=== PATIENT | male | born 1980 | race Caucasian/White ===

== ENCOUNTER → 2016-10-06 | Outpatient (CLI) | payer BC | LOC: M WUC 09:51 | PROVIDERS: ATTEND Nurse Practitioner Family | DX: E11.69 Type 2 diabetes mellitus with other specified complication (principal); I10 Essential (primary) hypertension; E78.5 Hyperlipidemia, unspecified ==

== ENCOUNTER → 2017-06-15 | Outpatient (CLI) | payer BC ==
[2017-06-15 12:15] LABS: MEAN CORPUSCULAR HEMOGLOBIN 31.1 pg (27.0-33.0); MEAN CORPUSCULAR HGB CONC 34.6 g/dl (32.0-36.5); MEAN CORPUSCULAR VOLUME 89.9 fl (80.0-96.0); PLATELET COUNT, AUTOMATED 312 10^3/uL (150-450); RED CELL DISTRIBUTION WIDTH 11.5 % (11.5-14.5); WHITE BLOOD COUNT 7.3 10^3/uL (4.0-10.0)
[2017-06-15 12:27] LABS: ALBUMIN 4.3 GM/DL (3.2-5.2); ALBUMIN/GLOBULIN RATIO 1.43 (1.00-1.93); ALKALINE PHOSPHATASE 24 U/L (45-117); ALT/SGPT 31 U/L (12-78); ANION GAP 6 MEQ/L (8-16); AST/SGOT 20 U/L (7-37); BILIRUBIN,TOTAL 0.6 MG/DL (0.2-1.0); BLOOD UREA NITROGEN 22 MG/DL (7-18); CALCIUM LEVEL 8.9 MG/DL (8.5-10.1); CARBON DIOXIDE LEVEL 28 MEQ/L (21-32); CHLORIDE LEVEL 106 MEQ/L (98-107); CHOLESTEROL LEVEL 186 MG/DL (<200); CREATININE FOR GFR 1.08 MG/DL (0.70-1.30); GLOMERULAR FILTRATION RATE > 60.0 (>60); GLUCOSE, FASTING 115 MG/DL (70-105); POTASSIUM SERUM 4.3 MEQ/L (3.5-5.1); SODIUM LEVEL 140 MEQ/L (136-145); TOTAL PROTEIN 7.3 GM/DL (6.4-8.2); TRIGLYCERIDES LEVEL 362 MG/DL (<150)
== END ==
LOC: M WUC 08:50
PROVIDERS: ATTEND Nurse Practitioner Family
DX: E11.9 Type 2 diabetes mellitus without complications (principal); E78.2 Mixed hyperlipidemia

== ENCOUNTER → 2017-07-04 | Outpatient (REF) | payer BC | LOC: M LAB REF 09:46 | DX: J02.9 Acute pharyngitis, unspecified (principal) | CPT/HCPCS: 87804 ==

== ENCOUNTER → 2018-02-20 | Outpatient (CLI) | payer BC ==
[2018-02-20 10:44] LABS: BASO # 0.1 10^3/uL (0.0-0.2); BASO % 0.5 % (0.0-1.0); EOS # 0.2 10^3/uL (0.0-0.50); EOS % 2.1 % (0.0-3.0); HEMOGLOBIN 14.5 g/dl (13.5-17.5); IMMATURE GRANULOCYTE % 0.9 % (0-3.0); LYMPH # 2.1 10^3/uL (1.5-4.5); LYMPH % 21.5 % (24.0-44.0); MEAN CORPUSCULAR HEMOGLOBIN 31.7 pg (27.0-33.0); MEAN CORPUSCULAR HGB CONC 34.5 g/dl (32.0-36.5); MEAN CORPUSCULAR VOLUME 91.7 fl (80.0-96.0); MONO % 10.1 % (0.0-5.0); NEUTROPHILS # 6.3 10^3/uL (1.8-7.7); NEUTROPHILS % 64.9 % (36.0-66.0); PLATELET COUNT, AUTOMATED 239 10^3/uL (150-450); RED BLOOD COUNT 4.58 10^6/uL (4.30-6.10); RED CELL DISTRIBUTION WIDTH 11.7 % (11.5-14.5); WHITE BLOOD COUNT 9.7 10^3/uL (4.0-10.0)
[2018-02-20 11:30] LABS: ALBUMIN/GLOBULIN RATIO 1.18 (1.00-1.93); ALKALINE PHOSPHATASE 42 U/L (45-117); ALT/SGPT 39 U/L (12-78); ANION GAP 8 MEQ/L (8-16); AST/SGOT 23 U/L (7-37); BILIRUBIN,TOTAL 0.5 MG/DL (0.2-1.0); BLOOD UREA NITROGEN 15 MG/DL (7-18); CALCIUM LEVEL 9.1 MG/DL (8.5-10.1); CARBON DIOXIDE LEVEL 28 MEQ/L (21-32); CHLORIDE LEVEL 104 MEQ/L (98-107); CREATININE FOR GFR 1.12 MG/DL (0.70-1.30); GLOMERULAR FILTRATION RATE > 60.0 (>60); GLUCOSE, FASTING 219 MG/DL (70-100); POTASSIUM SERUM 4.2 MEQ/L (3.5-5.1); SODIUM LEVEL 140 MEQ/L (136-145); TOTAL PROTEIN 7.4 GM/DL (6.4-8.2)
[2018-02-22 00:07] LABS: Lyme Disease IgG/IgM Antibodie <0.91 ISR (0.00-0.90); Lyme Disease IgM Ab Quantitati <0.80 index (0.00-0.79)
== END ==
LOC: M WUC 09:33
DX: R53.83 Other fatigue (principal)
CPT/HCPCS: 84443

== ENCOUNTER → 2019-07-11 | Outpatient (CLI) | payer BC ==
[2019-07-11 18:09] LABS: HEMATOCRIT 42.4 % (42.0-52.0); MEAN CORPUSCULAR HEMOGLOBIN 31.3 pg (27.0-33.0); MEAN CORPUSCULAR VOLUME 94.6 fl (80.0-96.0); PLATELET COUNT, AUTOMATED 245 10^3/uL (150-450); RED BLOOD COUNT 4.48 10^6/uL (4.30-6.10); WHITE BLOOD COUNT 8.3 10^3/uL (4.0-10.0)
[2019-07-11 18:26] LABS: HEMOGLOBIN A1c 7.1 %
[2019-07-11 18:29] LABS: ALBUMIN 4.2 GM/DL (3.2-5.2); ALT/SGPT 29 U/L (12-78); BILIRUBIN,TOTAL 0.7 MG/DL (0.2-1.0); BLOOD UREA NITROGEN 14 MG/DL (7-18); CALCIUM LEVEL 8.6 MG/DL (8.5-10.1); CARBON DIOXIDE LEVEL 26 MEQ/L (21-32); CHLORIDE LEVEL 103 MEQ/L (98-107); CHOLESTEROL LEVEL 205 MG/DL (<200); CHOLESTEROL RISK RATIO 6.833 (<5); CREATININE FOR GFR 1.08 MG/DL (0.70-1.30); GLOMERULAR FILTRATION RATE > 60.0 (>60); GLUCOSE, FASTING 134 MG/DL (70-100); HDL CHOLESTEROL 30 MG/DL (>40); LDL CHOLESTEROL 99 MG/DL (<100); NON-HDL-C 175 MG/DL; POTASSIUM SERUM 4.1 MEQ/L (3.5-5.1); SODIUM LEVEL 137 MEQ/L (136-145); THYROXINE (T4) 6.3 UG/DL (4.5-12.0); TOTAL PROTEIN 7.1 GM/DL (6.4-8.2); TRIGLYCERIDES LEVEL 378 MG/DL (<150)
[2019-07-11 18:40] LABS: CREATININE, URINE 64.3 MG/DL; MAU/CREAT RATIO 12.4 MCG/MG (0.0-30.0)
== END ==
LOC: M WUC 10:00
PROVIDERS: ATTEND Physician Assistant
DX: E11.9 Type 2 diabetes mellitus without complications (principal); E78.1 Pure hyperglyceridemia; G47.33 Obstructive sleep apnea (adult) (pediatric)

== ENCOUNTER → 2019-12-15 | Outpatient (REF) | payer BC, MEDICAID ==
[2019-12-15 18:22] LABS: BLOOD UREA NITROGEN 17 MG/DL (7-18); CALCIUM LEVEL 8.9 MG/DL (8.5-10.1); CARBON DIOXIDE LEVEL 28 MEQ/L (21-32); CHLORIDE LEVEL 105 MEQ/L (98-107); CREATININE FOR GFR 1.33 MG/DL (0.70-1.30); FREE T4 0.92 NG/DL (0.76-1.46); GLOMERULAR FILTRATION RATE > 60.0 (>60); GLUCOSE, FASTING 124 MG/DL (70-100); SODIUM LEVEL 140 MEQ/L (136-145)
[2019-12-15 18:51] LABS: HEMOGLOBIN A1c 7.3 %
== END ==
LOC: M SFHCADAM 16:30
PROVIDERS: ATTEND Physician Assistant
DX: E11.9 Type 2 diabetes mellitus without complications (principal); E78.1 Pure hyperglyceridemia; G47.33 Obstructive sleep apnea (adult) (pediatric)

== ENCOUNTER → 2020-06-25 | Outpatient (CLI) | payer OTHER, BC, MEDICAID ==
[2020-06-25 15:51] LABS: BLOOD UREA NITROGEN 14 MG/DL (7-18); CALCIUM LEVEL 8.4 MG/DL (8.5-10.1); CARBON DIOXIDE LEVEL 29 MEQ/L (21-32); CHLORIDE LEVEL 104 MEQ/L (98-107); CREATININE FOR GFR 0.98 MG/DL (0.70-1.30); FREE T4 0.94 NG/DL (0.76-1.46); GLOMERULAR FILTRATION RATE > 60.0 (>60); GLUCOSE, FASTING 167 MG/DL (70-100); POTASSIUM SERUM 3.8 MEQ/L (3.5-5.1); SODIUM LEVEL 140 MEQ/L (136-145)
[2020-06-25 15:52] LABS: HEMOGLOBIN A1c 7.3 %
== END ==
LOC: M WUC 11:23
PROVIDERS: ATTEND Physician Assistant
DX: E78.1 Pure hyperglyceridemia (principal); G47.33 Obstructive sleep apnea (adult) (pediatric); E11.9 Type 2 diabetes mellitus without complications

== ENCOUNTER → 2020-07-19 | Outpatient (CLI) | payer SELFPAY | LOC: M LABSMTC 14:15 | PROVIDERS: ATTEND Pediatrics | DX: Z20.822 Contact with and (suspected) exposure to COVID-19 (principal) ==

== ENCOUNTER 2021-07-03 10:49 | Inpatient (IN) | payer OTHER, MEDICAID ==
[2021-07-03] MEDS ORDERED: FENO134C (11:21)
[2021-07-03] MEDS ORDERED: ALOG1TAB2 (11:21)
[2021-07-03 13:00] LABS: BASO % 0.5 % (0.0-1.0); EOS % 0.5 % (0.0-3.0); HEMOGLOBIN 16.2 g/dl (13.5-17.5); LYMPH # 2.6 10^3/uL (1.5-5.0); LYMPH % 20.4 % (24.0-44.0); MEAN CORPUSCULAR HEMOGLOBIN 31.1 pg (27.0-33.0); MEAN CORPUSCULAR HGB CONC 35.2 g/dl (32.0-36.5); MEAN CORPUSCULAR VOLUME 88.3 fl (80.0-96.0); MONO % 7.5 % (2.0-8.0); NEUTROPHILS # 8.9 10^3/uL (1.5-8.5); NEUTROPHILS % 70.2 % (36.0-66.0); PLATELET COUNT, AUTOMATED 305 10^3/uL (150-450); RED BLOOD COUNT 5.21 10^6/uL (4.30-6.10); WHITE BLOOD COUNT 12.7 10^3/uL (4.0-10.0)
--- NOTE | 2021-07-03 13:00 | REP ---
INDICATION: eval for osteo, 5th digit. COMPARISON: None. TECHNIQUE: Four views of the 5th digit of the right foot FINDINGS: There is no acute fracture or destructive osseous lesion. IMPRESSION: No acute osseous abnormality. <Electronically signed by Samm Pizarro > 07/03/21 [id number]
[2021-07-03 13:01] LABS: BASO # 0.1 10^3/uL (0.0-0.2); EOS # 0.1 10^3/uL (0.0-0.5)
[2021-07-03 13:23] LABS: ALBUMIN 4.2 GM/DL (3.2-5.2); ALT/SGPT 37 U/L (12-78); BILIRUBIN,TOTAL 0.8 MG/DL (0.2-1.0); BLOOD UREA NITROGEN 16 MG/DL (7-18); CALCIUM LEVEL 9.8 MG/DL (8.5-10.1); CARBON DIOXIDE LEVEL 25 MEQ/L (21-32); CHLORIDE LEVEL 98 MEQ/L (98-107); CREATININE FOR GFR 1.11 MG/DL (0.70-1.30); GLOMERULAR FILTRATION RATE > 60.0 (>60); GLUCOSE, FASTING 378 MG/DL (70-100); POTASSIUM SERUM 4.1 MEQ/L (3.5-5.1); SODIUM LEVEL 134 MEQ/L (136-145); TOTAL PROTEIN 8.4 GM/DL (6.4-8.2)
[2021-07-03 13:27] LABS: HEMOGLOBIN A1c 9.9 %
[2021-07-03] MEDS ORDERED: cefTRIAXone SOD 1 GM in D5W MINI-BAG PLUS 50 ML IV ONE (13:45)
[2021-07-03 13:50] LABS: ERYTHROCYTE SEDIMENTATION RATE 16 mm/hr (0-15)
[2021-07-03] MEDS ORDERED: GLUCAGON INJ 1MG VIAL SC PRN (14:55)
[2021-07-03] MEDS: NS 1,000 ML IV SCH (14:55)
[2021-07-03] MEDS ORDERED: ACETAMINOPHEN TAB 650MG DOSE (2X325MG) PO PRN (14:55)
[2021-07-03] MEDS ORDERED: MOM 30ML SUSPENSION UDC PO PRN (14:55)
[2021-07-03] MEDS ORDERED: MAALOX 30 ML SUSP *UDC PO PRN (14:55)
[2021-07-03] MEDS ORDERED: DEXTROSE 50% 50 ML SYRINGE IV PRN (14:55)
[2021-07-03] MEDS ORDERED: VANCOMYCIN HCL 1,000 MG, VIAL MATE ADAPTER 1 EACH in NS 250 ML IV SCH (14:55)
[2021-07-03] MEDS ORDERED: GLUCOSE 4GM CHEW TABLET PO PRN (14:55)
--- NOTE | 2021-07-03 15:15 | HPEPDOC ---
[facility] Medical History & Physical Date of Admission Jul 03, 2021 Date of Service: Jul 03, 2021 History and Physical Chief complaint: Who presented to the emergency room with right toe pain History of present illness: Patient is a 41-year-old male with a PMHx of NIDDM2, DLP, who presented to the emergency room with right foot fifth digit toe pain and ulceration. Patient reported that over the last 2 months he had a corn on his foot. , However, on the first, he began to note increased drainage around the inner side of his pinky toe and redness that extended up his foot. Patient had reported some difficulty ambulating because of the pain. Patient denies any fevers or chills while at home. Patient denies any nausea, vomiting, chest pain, palpitations, cough, abdominal pain, constipation, diarrhea, or urinary discomfort. Patient does report some shortness of breath, however, he had attributed this to the pain he experienced. Patient denies any changes in his weight, but does report a poor appetite. Past Medical History: NIDDM2, DLP Past Surgical History: Patient had a mole resected off his chest wall as a child Allergies: See below Medications: See below Family History: - Reviewed and noncontributory Social History: - Patient reports that they are smoker; reports social alcohol use; reports use of marijuana - Denies recent travel or sick contacts - He reports that he has not received the COVID19 vaccine - Occupation; patient is employed Review of Systems: 10 point review of systems complete, all negative otherwise stated in HPI Physical exam: - Vitals: BP [145/95], HR [102], RR [15], Sat [98%RA], Temp [97.4F] - General: Lying in bed, Speaking in full sentences, AAOx3 - HEENT: NC, AT, PERRLA - CVS: Tachycardia, +S1S2 - Lungs: Fair air entry bilaterally, No appreciable wheezing / rales / rhonchi - Abdomen: Soft, Non-distended, Non-tender - Extremities: No lower extremity edema, No calf tenderness - Neuro: No focal motor or sensory deficit - Skin: R foot, 5th digit with medial aspect with serosanguineous drainage; erythema involving R dorsal surface of foot Labs: See below Imaging: See below EKG: See below Assessment and Plan: R foot fifth digit ulceration - likely 2/2 diabetic ulcer, possibly 2/2 osteomyelitis - Presented to the ER with right toe pain since 07/01/21 - Patient has mild tachycardia, but remains hemodynamically stable; no fevers documented - Leukocytosis with neutrophil predominance / Elevated CRP - Imaging noted above - Will check blood cultures / procalcitonin / MRSA screen - Will start IV fluid hydration and broad spectrum coverage (Vancomycin and Zosyn; Day #1) - Called and discussed case with Dr. Deleon, podiatry; will evaluate patient today - Will keep patient NPO status at this time COVID19 - Patient is currently asymptomatic - Patient is saturating well on room air - Will start Mucinex / Acapella / Incentive spirometry Hyponatremia (mild) - c/w IV fluid hydration (in view of active infection) NIDDM2 - Will hold home oral hypoglycemic agents - A1c of 9.9 - Will start ISS - Will get dietary consult DLP - c/w Fenofibrate DVT prophylaxis - Will start Heparin Disposition: - Pending clinical improvement Vital Signs Vital Signs Date Time Temp Pulse Resp B/P (MAP) Pulse Ox O2 Delivery O2 Flow Rate FiO2 07/03/21 10:49 97.4 102 15 145/95 (112) 98 Room Air Laboratory Data Labs 24H Laboratory Tests 2 07/03/21 12:42: Immature Granulocyte % (Auto) 0.9, Neutrophils (%) (Auto) 70.2H, Lymphocytes (%) (Auto) 20.4L, Monocytes (%) (Auto) 7.5, Eosinophils (%) (Auto) 0.5, Basophils (%) (Auto) 0.5, Neutrophils # (Auto) 8.9H, Lymphocytes # (Auto) 2.6, Monocytes # (Auto) 1.0H, Eosinophils # (Auto) 0.1, Basophils # (Auto) 0.1, Nucleated Red Blood Cells % (auto) 0.0, Erythrocyte Sedimentation Rate 16H, Anion Gap 11, Glomerular Filtration Rate > 60.0, Estimated Mean Plasma Glucose 237H, Hemoglobin A1c 9.9, Calcium Level 9.8, Total Bilirubin 0.8, Aspartate Amino Transf (AST/SGOT) 18, Alanine Aminotransferase (ALT/SGPT) 37, Alkaline Phosphatase 72, C-Reactive Protein, Quantitative 12.90H, Total Protein 8.4H, Albumin 4.2, Albumin/Globulin Ratio 1.0 07/03/21 12:43: Coronavirus (COVID-19)(PCR) POSITIVEA CBC/BMP Laboratory Tests 07/03/21 12:42 Microbiology Microbiology 07/03/21 Blood Culture, Received Pending 07/03/21 Blood Culture, Received Pending Home Medications Scheduled Alogliptin Benitez/Metformin HCl (Alogliptin-Metformin 12.5-1000) 1 Each Tablet, BID Fenofibrate,Micronized (Fenofibrate) 134 Mg Capsule, DAILY Allergies Coded Allergies: prochlorperazine (Verified Allergy, Severe, nucal ridgidity, 07/03/21) CASPER BETANCOURT MD Jul 03, 2021 15:15
[2021-07-03 17:00] VITALS: BP 136/87
[2021-07-03] MEDS: PIPERACILLIN/TAZOBACTAM SOD 3.375 GM in D5W MINI-BAG PLUS 50 ML IV SCH (17:13)
[2021-07-03] MEDS: HumaLOG INSULIN (NovoLOG) PER UNIT SC SCH (17:13)
[2021-07-03 20:00] VITALS: BP 131/70
[2021-07-03] MEDS ORDERED: VANCOMYCIN HCL 1,000 MG, VIAL MATE ADAPTER 1 EACH in NS 250 ML IV ONE ×2 (20:00→21:00)
[2021-07-03] MEDS: guaiFENesin ER 600 MG TAB PO SCH (20:40)
[2021-07-03] MEDS: DOCUSATE SODIUM 100MG CAPSULE PO SCH (20:40)
[2021-07-03] MEDS: MUPIROCIN 2% OINT 22 GM TUBE TOP SCH (20:40)
[2021-07-03] MEDS ORDERED: LEVEMIR (INSULIN DETEMIR) 1 UNITS/0.01ML SC SCH (21:00)
[2021-07-03] MEDS ORDERED: HumaLOG INSULIN (NovoLOG) PER UNIT SC SCH (21:00)
[2021-07-03] MEDS: HEPARIN SOD (PORCINE) 5000UNITS/ML 1ML VIAL/SYRINGE SC SCH (22:06)
--- NOTE | 2021-07-03 23:57 | CR ---
CONSULTATION DATE: 07/03/2021 REASON FOR CONSULTATION: Right fifth toe ulceration and infection. HISTORY OF PRESENT ILLNESS: Jules Owen is a 41-year-old male who was admitted through the E.R. due to worsening right fifth toe pain. He states he has had a corn there that he has been using some corn remover on. Over the last few days it has significantly worsened in terms of pain. PAST MEDICAL HISTORY: The patient's past medical history is significant for: 1. Diabetes. 2. Hypercholesterolemia. PAST SURGICAL HISTORY: The patient's past surgical history is significant for mole excision. ALLERGIES: Prochlorperazine. FAMILY HISTORY: Noncontributory. SOCIAL HISTORY: Positive for smoking and tobacco and marijuana use. REVIEW OF SYSTEMS: Negative for nausea, vomiting, fever or chills. PHYSICAL EXAMINATION: VITAL SIGNS: The patient has been afebrile. EXTREMITIES: Lower extremity examination there is erythema and edema from the right fifth toe where there is a necrotic ulceration. LABORATORY STUDIES: White blood cell count is 20.7, ESR 16, CRP is 12.9. Hemoglobin A1c is 9.9. Of note, the patient is COVID positive. IMAGING: X-rays were reviewed which revealed no signs of osteomyelitis. ASSESSMENT: A 41-year-old diabetic male with right fifth toe ulceration and cellulitis. TREATMENT: Bedside wound debridement was performed after administering 3 mL of 1% Lidocaine plain. Using a #15 blade, an excisional subcutaneous debridement was performed. Wound culture swab was taken. The wound dressing orders including Mupirocin Ointment and Optifoam to be applied.
[2021-07-04] MEDS: PIPERACILLIN/TAZOBACTAM SOD 3.375 GM in D5W MINI-BAG PLUS 50 ML IV SCH ×3 (00:12→12:25)
[2021-07-04] MEDS: NS 1,000 ML IV SCH ×2 (00:55→13:58)
[2021-07-04] MEDS ORDERED: VANCOMYCIN HCL 750 MG, VIAL MATE ADAPTER 1 EACH in NS 250 ML IV SCH ×2 (03:00→04:00)
[2021-07-04 04:00] VITALS: BP 112/62
[2021-07-04] MEDS: HEPARIN SOD (PORCINE) 5000UNITS/ML 1ML VIAL/SYRINGE SC SCH ×2 (05:12→14:00)
[2021-07-04 07:03] LABS: BASO # 0.1 10^3/uL (0.0-0.2); BASO % 0.5 % (0.0-1.0); EOS # 0.1 10^3/uL (0.0-0.5); EOS % 1.5 % (0.0-3.0); HEMATOCRIT 38.4 % (42.0-52.0); LYMPH # 3.4 10^3/uL (1.5-5.0); LYMPH % 35.6 % (24.0-44.0); MEAN CORPUSCULAR HEMOGLOBIN 30.9 pg (27.0-33.0); MEAN CORPUSCULAR HGB CONC 34.9 g/dl (32.0-36.5); MEAN CORPUSCULAR VOLUME 88.7 fl (80.0-96.0); MONO # 0.9 10^3/uL (0.0-0.8); MONO % 9.5 % (2.0-8.0); NEUTROPHILS # 4.9 10^3/uL (1.5-8.5); NEUTROPHILS % 51.7 % (36.0-66.0); PLATELET COUNT, AUTOMATED 265 10^3/uL (150-450); RED BLOOD COUNT 4.33 10^6/uL (4.30-6.10); WHITE BLOOD COUNT 9.5 10^3/uL (4.0-10.0)
[2021-07-04 07:16] LABS: HEMOGLOBIN 13.4 g/dl (13.5-17.5)
[2021-07-04 07:42] LABS: BLOOD UREA NITROGEN 20 MG/DL (7-18); C REACTIVE PROTEIN QUANTITATIV 8.64 MG/DL (0.00-0.30); CALCIUM LEVEL 8.5 MG/DL (8.5-10.1); CARBON DIOXIDE LEVEL 24 MEQ/L (21-32); CHLORIDE LEVEL 105 MEQ/L (98-107); CREATININE FOR GFR 0.86 MG/DL (0.70-1.30); GLOMERULAR FILTRATION RATE > 60.0 (>60); GLUCOSE, FASTING 301 MG/DL (70-100); MAGNESIUM LEVEL 1.8 MG/DL (1.8-2.4); POTASSIUM SERUM 3.9 MEQ/L (3.5-5.1); SODIUM LEVEL 137 MEQ/L (136-145)
[2021-07-04] MEDS ORDERED: FENOFIBRATE 145MG TABLET (TRICOR) PO SCH (09:00)
[2021-07-04] MEDS: HumaLOG INSULIN (NovoLOG) PER UNIT SC SCH ×2 (09:34→12:25)
[2021-07-04] MEDS: DOCUSATE SODIUM 100MG CAPSULE PO SCH (09:34)
[2021-07-04] MEDS: guaiFENesin ER 600 MG TAB PO SCH (09:35)
[2021-07-04] MEDS: MUPIROCIN 2% OINT 22 GM TUBE TOP SCH (09:35)
[2021-07-04 13:40] VITALS: BP 129/72
[2021-07-04] MEDS ORDERED: BACT800T5 PO (14:19)
--- NOTE | 2021-07-04 14:27 | DS.PDOC ---
Discharge Summary General Date of Admission Jul 03, 2021 at 14:52 Date of Discharge 07/04/21 Discharge Summary PROCEDURES PERFORMED DURING STAY: right 5th toe debridement DISCHARGE DIAGNOSES: #right foot DFU - s/p debridement #NIDDM2 #DLP COMPLICATIONS/CHIEF COMPLAINT: Cellulitis,Diabetic Foot Ulcer. HPI/HOSPITAL COURSE: Patient is a 41-year-old male with a PMHx of NIDDM2, DLP, who presented to the emergency room with right foot fifth digit toe pain and ulceration. Patient reported that over the last 2 months he had a corn on his foot. , However, on the first, he began to note increased drainage around the inner side of his pinky toe and redness that extended up his foot. Patient had reported some difficulty ambulating because of the pain. Patient denies any fevers or chills while at home. Patient was seen in consultation by podiatry. Patient underwent bedside debridement. Further discussion with podiatry with recommendations for discharge home with oral antibiotics and outpatient follow-up. DISCHARGE MEDICATIONS: Please see below. ALLERGIES: Please see below. PHYSICAL EXAMINATION ON DISCHARGE: Vital Signs: reviewed General: NAD, lying comfortably in bed HEENT: NC/AT, EOMI Neck: supple, no masses Chest: lungs CTA B/L Heart: +S1S2, RRR Abd: soft, NT, ND, +BS Ext: Right foot bandages in place Skin: no rashes MSK: full ROM at large joints Neuro: no gross focal deficits Psych: AAOx3 LABORATORY DATA: Please see below. ACTIVITY: [As tolerated]. DIET: Carb consistent DISPOSITION: Discharge home DISCHARGE INSTRUCTIONS: 1. Follow-up primary care provider in 1 to 3 days 2. Follow-up with podiatry in 3 to 5 days DISCHARGE CONDITION: [Stable]. TIME SPENT ON DISCHARGE: 35 minutes. Vital Signs/I&Os Vital Signs Date Time Temp Pulse Resp B/P (MAP) Pulse Ox O2 Delivery O2 Flow Rate FiO2 07/04/21 13:40 98.0 72 18 129/72 (91) 99 Room Air I&O- Last 24 Hours up to 6 AM 07/04/21 06:00 Intake Total 3050 ml Output Total 2000 ml Balance 1050 ml Laboratory Data Labs 24H Laboratory Tests 2 07/03/21 15:54: Lactic Acid Level 1.4 07/03/21 16:53: Bedside Glucose (Misc Panel) 294H 07/03/21 19:41: Bedside Glucose (Misc Panel) 369H 07/04/21 06:25: Immature Granulocyte % (Auto) 1.2, Neutrophils (%) (Auto) 51.7, Lymphocytes (%) (Auto) 35.6, Monocytes (%) (Auto) 9.5H, Eosinophils (%) (Auto) 1.5, Basophils (%) (Auto) 0.5, Neutrophils # (Auto) 4.9, Lymphocytes # (Auto) 3.4, Monocytes # (Auto) 0.9H, Eosinophils # (Auto) 0.1, Basophils # (Auto) 0.1, Nucleated Red Blood Cells % (auto) 0.0, Anion Gap 8, Glomerular Filtration Rate > 60.0, Calcium Level 8.5, Magnesium Level 1.8, C-Reactive Protein, Quantitative 8.64H 07/04/21 11:10: Bedside Glucose (Misc Panel) 248H CBC/BMP Laboratory Tests 07/04/21 06:25 FSBS Laboratory Tests Test 07/03/21 16:53 07/03/21 19:41 07/04/21 11:10 Range/Units Bedside Glucose (Misc Panel) 294 369 248 70-105 MG/DL Microbiology Microbiology 07/03/21 Gram Stain - Final, Resulted 07/03/21 Wound Culture, Resulted Pending 07/03/21 Blood Culture - Preliminary, Resulted No growth after 24 hours . All specim... 07/03/21 Blood Culture - Preliminary, Resulted No growth after 24 hours . All specim... Discharge Medications Scheduled Alogliptin Benitez/Metformin HCl (Alogliptin-Metformin 12.5-1000) 1 Each Tablet, BID, (Reported) Fenofibrate,Micronized (Fenofibrate) 134 Mg Capsule, DAILY, (Reported) Sulfamethoxazole/Trimethoprim (Bactrim Ds Tablet) 1 Each Tablet, 1 TAB PO BID Allergies Coded Allergies: prochlorperazine (Verified Allergy, Severe, nucal ridgidity, 07/03/21) RADHA LOGAN MD Jul 04, 2021 14:27
== END 2021-07-04 15:30 | disposition home or self-care (01) | DRG 380 ==
LOC: M ED 10:49 → M ED INP 14:52 → ENRESERV 15:40 → M 4MAIN 16:18
PROVIDERS: ADMIT Internal Medicine; ATTEND Internal Medicine
PROC: 0JBQ0ZZ Excision of Right Foot Subcutaneous Tissue and Fascia, Open Approach (ICD-10-PCS; principal; 2021-07-03)
DX: E11.621 Type 2 diabetes mellitus with foot ulcer (principal); U07.1 COVID-19; L97.519 Non-pressure chronic ulcer of other part of right foot with unspecified severity; E87.1 Hypo-osmolality and hyponatremia; E78.5 Hyperlipidemia, unspecified; Z88.8 Allergy status to other drugs, medicaments and biological substances; Z79.899 Other long term (current) drug therapy; Z88.2 Allergy status to sulfonamides; F17.200 Nicotine dependence, unspecified, uncomplicated; F12.90 Cannabis use, unspecified, uncomplicated

== ENCOUNTER → 2021-07-22 | Outpatient (CLI) | payer OTHER, MEDICAID ==
[~2021-07-22] MED LIST: ALOG1TAB2; BACT800T5 PO; FENO134C
[2021-07-22 12:20] LABS: BASO % 0.5 % (0.0-1.0); EOS # 0.1 10^3/uL (0.0-0.5); EOS % 1.7 % (0.0-3.0); HEMATOCRIT 38.3 % (42.0-52.0); LYMPH # 2.5 10^3/uL (1.5-5.0); LYMPH % 38.6 % (24.0-44.0); MEAN CORPUSCULAR HEMOGLOBIN 30.4 pg (27.0-33.0); MEAN CORPUSCULAR HGB CONC 33.9 g/dl (32.0-36.5); MEAN CORPUSCULAR VOLUME 89.7 fl (80.0-96.0); MONO # 0.5 10^3/uL (0.0-0.8); MONO % 8.1 % (2.0-8.0); NEUTROPHILS # 3.3 10^3/uL (1.5-8.5); NEUTROPHILS % 50.3 % (36.0-66.0); PLATELET COUNT, AUTOMATED 241 10^3/uL (150-450); RED BLOOD COUNT 4.27 10^6/uL (4.30-6.10); WHITE BLOOD COUNT 6.6 10^3/uL (4.0-10.0)
[2021-07-22 13:00] LABS: ALBUMIN 3.8 GM/DL (3.2-5.2); ALT/SGPT 35 U/L (12-78); BILIRUBIN,TOTAL 0.5 MG/DL (0.2-1.0); BLOOD UREA NITROGEN 15 MG/DL (7-18); CALCIUM LEVEL 8.6 MG/DL (8.5-10.1); CARBON DIOXIDE LEVEL 27 MEQ/L (21-32); CHLORIDE LEVEL 106 MEQ/L (98-107); CHOLESTEROL LEVEL 151 MG/DL (<200); CHOLESTEROL RISK RATIO 4.441 (<5); CREATININE FOR GFR 0.87 MG/DL (0.70-1.30); FREE T4 0.95 NG/DL (0.76-1.46); GLOMERULAR FILTRATION RATE > 60.0 (>60); GLUCOSE, FASTING 249 MG/DL (70-100); HDL CHOLESTEROL 34 MG/DL (>40); LDL CHOLESTEROL 91 MG/DL (<100); NON-HDL-C 117 MG/DL; POTASSIUM SERUM 4.1 MEQ/L (3.5-5.1); SODIUM LEVEL 138 MEQ/L (136-145); TOTAL PROTEIN 6.7 GM/DL (6.4-8.2); TRIGLYCERIDES LEVEL 128 MG/DL (<150)
[2021-07-24 11:03] LABS: TOTAL 25(OH) VITAMIN D 27.1 NG/ML (30.0-100.0)
[2021-07-24 11:04] LABS: FOLATE 16.5 NG/ML (>5.4); VITAMIN B12 LEVEL 1073 PG/ML (247-911)
== END ==
LOC: M LAB 11:21
PROVIDERS: ATTEND Physician Assistant
DX: E11.9 Type 2 diabetes mellitus without complications (principal); E78.5 Hyperlipidemia, unspecified; E78.1 Pure hyperglyceridemia

== ENCOUNTER → 2021-09-27 | Outpatient (CLI) | payer MEDICAID, OTHER ==
[~2021-09-27] MED LIST changes: -FENO134C; +FENO134C16
[2021-09-27 10:42] LABS: HEMATOCRIT 37.7 % (42.0-52.0); HEMOGLOBIN 12.9 g/dl (13.5-17.5); MEAN CORPUSCULAR HEMOGLOBIN 30.6 pg (27.0-33.0); MEAN CORPUSCULAR HGB CONC 34.2 g/dl (32.0-36.5); MEAN CORPUSCULAR VOLUME 89.5 fl (80.0-96.0); PLATELET COUNT, AUTOMATED 273 10^3/uL (150-450); RED BLOOD COUNT 4.21 10^6/uL (4.30-6.10); WHITE BLOOD COUNT 9.8 10^3/uL (4.0-10.0)
[2021-09-27 11:37] LABS: HEMOGLOBIN A1c 9.6 %
[2021-09-27 11:41] LABS: ALBUMIN 4.3 GM/DL (3.2-5.2); ALT/SGPT 35 U/L (12-78); BILIRUBIN,TOTAL 0.7 MG/DL (0.2-1.0); BLOOD UREA NITROGEN 13 MG/DL (7-18); CALCIUM LEVEL 9.3 MG/DL (8.5-10.1); CARBON DIOXIDE LEVEL 31 MEQ/L (21-32); CHLORIDE LEVEL 103 MEQ/L (98-107); CREATININE FOR GFR 0.82 MG/DL (0.70-1.30); FERRITIN 85 NG/ML (26-388); GLOMERULAR FILTRATION RATE > 60.0 (>60); GLUCOSE, FASTING 148 MG/DL (70-100); IRON (FE) 56 UG/DL (65-175); PERCENT SATURATION 13.9 % (19.7-50.0); SODIUM LEVEL 138 MEQ/L (136-145); TOTAL IRON BINDING CAPACITY 404 UG/DL (250-450); TOTAL PROTEIN 7.1 GM/DL (6.4-8.2)
== END ==
LOC: M LAB 09:09
PROVIDERS: ATTEND Physician Assistant
DX: E11.621 Type 2 diabetes mellitus with foot ulcer (principal); D64.9 Anemia, unspecified

== ENCOUNTER → 2022-01-02 | Outpatient (REF) | payer MEDICAID, OTHER ==
[2022-01-02 13:01] LABS: HEMOGLOBIN 14.7 g/dl (13.5-17.5); MEAN CORPUSCULAR HEMOGLOBIN 30.6 pg (27.0-33.0); MEAN CORPUSCULAR HGB CONC 33.4 g/dl (32.0-36.5); MEAN CORPUSCULAR VOLUME 91.7 fl (80.0-96.0); PLATELET COUNT, AUTOMATED 282 10^3/uL (150-450); WHITE BLOOD COUNT 7.8 10^3/uL (4.0-10.0)
[2022-01-02 13:23] LABS: HEMOGLOBIN A1c 6.5 %
[2022-01-02 13:37] LABS: ALBUMIN 4.3 GM/DL (3.2-5.2); ALT/SGPT 26 U/L (12-78); BILIRUBIN,TOTAL 0.8 MG/DL (0.2-1.0); BLOOD UREA NITROGEN 23 MG/DL (7-18); CALCIUM LEVEL 9.1 MG/DL (8.5-10.1); CARBON DIOXIDE LEVEL 27 MEQ/L (21-32); CHLORIDE LEVEL 107 MEQ/L (98-107); CREATININE FOR GFR 0.84 MG/DL (0.70-1.30); FERRITIN 81 NG/ML (26-388); GLOMERULAR FILTRATION RATE > 60.0 (>60); GLUCOSE, FASTING 127 MG/DL (70-100); IRON (FE) 111 UG/DL (65-175); PERCENT SATURATION 28.3 % (19.7-50.0); POTASSIUM SERUM 4.2 MEQ/L (3.5-5.1); SODIUM LEVEL 138 MEQ/L (136-145); TOTAL IRON BINDING CAPACITY 392 UG/DL (250-450); TOTAL PROTEIN 7.2 GM/DL (6.4-8.2)
== END ==
LOC: M SFHCADAM 09:51
PROVIDERS: ATTEND Physician Assistant
DX: E11.621 Type 2 diabetes mellitus with foot ulcer (principal); D64.9 Anemia, unspecified

== ENCOUNTER → 2022-06-13 | Outpatient (REF) | payer MEDICAID, OTHER ==
[~2022-06-13] MED LIST changes: -FENO134C16; +FENO134C20
[2022-06-13 14:23] LABS: BASO # 0.1 10^3/uL (0.0-0.2); BASO % 0.7 % (0.0-1.0); EOS # 0.2 10^3/uL (0.0-0.5); EOS % 2.4 % (0.0-3.0); HEMATOCRIT 44.5 % (42.0-52.0); HEMOGLOBIN 14.7 g/dl (13.5-17.5); LYMPH # 2.6 10^3/uL (1.5-5.0); LYMPH % 35.5 % (24.0-44.0); MEAN CORPUSCULAR HEMOGLOBIN 30.4 pg (27.0-33.0); MEAN CORPUSCULAR VOLUME 92.1 fl (80.0-96.0); MONO # 0.6 10^3/uL (0.0-0.8); MONO % 7.7 % (2.0-8.0); NEUTROPHILS # 3.9 10^3/uL (1.5-8.5); NEUTROPHILS % 53.2 % (36.0-66.0); PLATELET COUNT, AUTOMATED 245 10^3/uL (150-450); RED BLOOD COUNT 4.83 10^6/uL (4.30-6.10); WHITE BLOOD COUNT 7.4 10^3/uL (4.0-10.0)
[2022-06-13 14:35] LABS: ALBUMIN 3.9 G/DL (3.2-5.2); ALKALINE PHOSPHATASE 44 U/L (46-116); ALT/SGPT 28 U/L (7.0-40); AST/SGOT 25 U/L (<34); BILIRUBIN,TOTAL 0.9 MG/DL (0.3-1.2); BLOOD UREA NITROGEN 19 MG/DL (9-23); CALCIUM LEVEL 9.1 MG/DL (8.5-10.1); CARBON DIOXIDE LEVEL 30 MMOL/L (20-31); CHLORIDE LEVEL 104 MMOL/L (98-107); CHOLESTEROL LEVEL 186 MG/DL (<200); CHOLESTEROL RISK RATIO 3.84 (<5); CREATININE FOR GFR 0.84 MG/DL (0.70-1.30); GLOMERULAR FILTRATION RATE > 60.0 (>60); GLUCOSE, FASTING 128 MG/DL (60-100); HDL CHOLESTEROL 48.4 MG/DL (>40); IRON (FE) 95 UG/DL (65-175); LDL CHOLESTEROL 116.6 MG/DL (<100); NON-HDL-C 138 MG/DL; POTASSIUM SERUM 4.3 MMOL/L (3.5-5.1); SODIUM LEVEL 139 MMOL/L (136-145); TOTAL PROTEIN 7.1 G/DL (5.7-8.2); TRIGLYCERIDES LEVEL 105 MG/DL (<150)
[2022-06-13 14:36] LABS: FREE T4 1.19 NG/DL (0.89-1.76); THYROID STIMULATING HORMONE 2.236 uIU/ML (0.55-4.78)
[2022-06-13 14:37] LABS: FOLATE > 24.0 NG/ML (>5.4); VITAMIN B12 LEVEL 645 PG/ML (211-911)
== END ==
LOC: M SFHCADAM 09:19
PROVIDERS: ATTEND Family Medicine
DX: E78.1 Pure hyperglyceridemia (principal); E11.621 Type 2 diabetes mellitus with foot ulcer; D64.9 Anemia, unspecified

== ENCOUNTER → 2024-06-06 | Outpatient (CLI) | payer OTHER ==
[2024-06-06 12:08] LABS: BASO # 0.1 10^3/uL (0.0-0.2); BASO % 0.6 % (0.0-1.0); EOS # 0.2 10^3/uL (0.0-0.5); EOS % 1.9 % (0.0-3.0); HEMATOCRIT 39.8 % (42.0-52.0); HEMOGLOBIN 13.7 g/dl (13.5-17.5); LYMPH # 2.7 10^3/uL (1.5-5.0); LYMPH % 32.7 % (24.0-44.0); MEAN CORPUSCULAR HEMOGLOBIN 30.5 pg (27.0-33.0); MEAN CORPUSCULAR HGB CONC 34.4 g/dl (32.0-36.5); MEAN CORPUSCULAR VOLUME 88.6 fl (80.0-96.0); MONO # 0.5 10^3/uL (0.0-0.8); MONO % 6.2 % (2.0-8.0); NEUTROPHILS # 4.9 10^3/uL (1.5-8.5); NEUTROPHILS % 58.2 % (36.0-66.0); PLATELET COUNT, AUTOMATED 283 10^3/uL (150-450); RED BLOOD COUNT 4.49 10^6/uL (4.30-6.10); WHITE BLOOD COUNT 8.3 10^3/uL (4.0-10.0)
[2024-06-06 12:20] LABS: HEMOGLOBIN A1c 9.5 % (4.0-6.0)
[2024-06-06 12:31] LABS: MAU/CREAT RATIO 10.9 MCG/MG (0.0-30.0)
[2024-06-06 12:32] LABS: ALBUMIN 3.9 G/DL (3.2-5.2); ALKALINE PHOSPHATASE 54 U/L (40-129); ALT/SGPT 34 U/L (7.0-40); AST/SGOT 15 U/L (<34); BILIRUBIN,TOTAL 0.7 MG/DL (0.3-1.2); BLOOD UREA NITROGEN 21 MG/DL (9-23); CALCIUM LEVEL 9.5 MG/DL (8.5-10.1); CARBON DIOXIDE LEVEL 25 MMOL/L (20-31); CHLORIDE LEVEL 103 MMOL/L (98-107); CHOLESTEROL LEVEL 190 MG/DL (<200); CHOLESTEROL RISK RATIO 4.37 (<5); GLOMERULAR FILTRATION RATE > 60.0 (>60); GLUCOSE, FASTING 363 MG/DL (60-100); HDL CHOLESTEROL 43.4 MG/DL (>40); LDL CHOLESTEROL 99.6 MG/DL (<100); NON-HDL-C 146.6 MG/DL; POTASSIUM SERUM 4.1 MMOL/L (3.5-5.1); SODIUM LEVEL 135 MMOL/L (136-145); TOTAL PROTEIN 7.4 G/DL (5.7-8.2); TRIGLYCERIDES LEVEL 235 MG/DL (<150)
[2024-06-06 12:34] LABS: FREE T4 1.15 NG/DL (0.89-1.76); THYROID STIMULATING HORMONE 1.844 uIU/ML (0.55-4.78)
== END ==
LOC: M LAB 11:32
PROVIDERS: ATTEND Physician Assistant
DX: E11.621 Type 2 diabetes mellitus with foot ulcer (principal); E78.1 Pure hyperglyceridemia; D64.9 Anemia, unspecified

== ENCOUNTER 2024-09-16 16:01 | Inpatient (IN) | payer MEDICAID, OTHER ==
[~2024-09-16] VITALS: Ht 203.2 cm; Wt 114.4 kg
[~2024-09-16 16:01] MED LIST changes: -LANTINJ4 PO; +UNRESOLVED CLARIFICATION ENTRY XX SCH
[2024-09-16] MEDS ORDERED: GLUCAGON INJ 1MG VIAL SC PRN (18:05)
[2024-09-16] MEDS ORDERED: MOM 30ML SUSPENSION UDC PO PRN (18:05)
[2024-09-16] MEDS ORDERED: GLUCOSE 4 GM CHEW PO PRN (18:05)
[2024-09-16] MEDS ORDERED: MAALOX 30 ML SUSP *UDC PO PRN (18:05)
[2024-09-16] MEDS ORDERED: ACETAMINOPHEN 325 MG TAB PO PRN (18:05)
[2024-09-16] MEDS ORDERED: DEXTROSE 50% 50ML SYRINGE IV PRN (18:05)
[2024-09-16] MEDS ORDERED: VANCOMYCIN HCL 1,000 MG, VIAL MATE ADAPTER 1 EACH in NS 250 ML IV SCH (18:15)
[2024-09-16 18:39] VITALS: BP 144/85; TEMP 97.8
[2024-09-16] MEDS: NS (Normal Saline) 0.9% 1,000 ML IV ONE ×2 (18:50→20:40)
[2024-09-16 18:52] LABS: BASO % 0.3 % (0.0-1.0); HEMOGLOBIN 13.2 g/dl (13.5-17.5); LYMPH # 1.2 10^3/uL (1.5-5.0); LYMPH % 10.4 % (24.0-44.0); MEAN CORPUSCULAR HEMOGLOBIN 30.4 pg (27.0-33.0); MEAN CORPUSCULAR HGB CONC 33.8 g/dl (32.0-36.5); MEAN CORPUSCULAR VOLUME 89.9 fl (80.0-96.0); MONO # 1.2 10^3/uL (0.0-0.8); MONO % 10.1 % (2.0-8.0); NEUTROPHILS # 9.2 10^3/uL (1.5-8.5); NEUTROPHILS % 78.8 % (36.0-66.0); PLATELET COUNT, AUTOMATED 235 10^3/uL (150-450); RED BLOOD COUNT 4.34 10^6/uL (4.30-6.10); WHITE BLOOD COUNT 11.6 10^3/uL (4.0-10.0)
[2024-09-16] MEDS ORDERED: LANTINJ4 PO (18:59)
[2024-09-16] MEDS ORDERED: HOME MED LIST COMPLETE! XX SCH (19:00)
[2024-09-16 19:04] LABS: INR 0.88; PROTHROMBIN TIME 12.3 SECONDS (12.5-14.5)
[2024-09-16 19:18] LABS: ALBUMIN 3.6 G/DL (3.2-5.2); ALKALINE PHOSPHATASE 63 U/L (40-129); ALT/SGPT 29 U/L (7.0-40); AST/SGOT 20 U/L (<34); BILIRUBIN,TOTAL 0.9 MG/DL (0.3-1.2); BLOOD UREA NITROGEN 14 MG/DL (9-23); C REACTIVE PROTEIN QUANTITATIV 16.44 MG/DL (<1.0); CALCIUM LEVEL 8.9 MG/DL (8.5-10.1); CARBON DIOXIDE LEVEL 23 MMOL/L (20-31); CHLORIDE LEVEL 99 MMOL/L (98-107); CREATININE FOR GFR 0.71 MG/DL (0.70-1.30); GLOMERULAR FILTRATION RATE > 60.0 (>60); GLUCOSE, FASTING 382 MG/DL (60-100); POTASSIUM SERUM 4.2 MMOL/L (3.5-5.1); SODIUM LEVEL 133 MMOL/L (136-145)
[2024-09-16 19:20] LABS: HEMOGLOBIN A1c 10.8 % (4.0-6.0)
[2024-09-16 19:30] LABS: PROCALCITONIN 0.23 ng/ml
[2024-09-16] MEDS: PIPERACILLIN/TAZOBACTAM SOD 3.375 GM in DEXTROSE 5% (D5W) ADV/MINI-BAG 50 ML IV SCH (20:00)
[2024-09-16 20:11] VITALS: TEMP 99.7
[2024-09-16] MEDS: VANCOMYCIN HCL 2,000 MG, VIAL MATE ADAPTER 1 EACH in NS 500 ML IV ONE (20:39)
[2024-09-16] MEDS: NS (Normal Saline) 0.9% 1,000 ML IV SCH (20:40)
[2024-09-16] MEDS: OSELTAMIVIR PHOSPHATE 75 MG CAP PO SCH (20:40)
[2024-09-16] MEDS: DOCUSATE SODIUM 100MG CAPSULE PO SCH (20:41)
[2024-09-16] MEDS: guaiFENesin ER TABLET 600 MG TAB PO SCH (20:41)
[2024-09-16] MEDS: HEPARIN SOD (PORCINE) 5000UNITS/ML 1ML VIAL/SYRINGE SC SCH (20:43)
[2024-09-16 20:56] VITALS: BP 136/74; TEMP 97.3; O2SAT 98
[2024-09-16] MEDS: INSULIN LISPRO (NovoLOG) PER UNIT SC SCH (21:03)
[2024-09-16] MEDS: LanTUS (INSULIN GLARGINE INJ) 1 UNITS/0.01 ML SC SCH (21:04)
[2024-09-16 21:58] LABS: KETONE, URINE AUTO RFX TRACE mg/dL (NEGATIVE); LEUKOCYTE ESTERASE UR AUTO RFX NEGATIVE (NEGATIVE); NITRITE, URINE AUTO RFX NEGATIVE (NEGATIVE); RBC, URINE AUTO RFX 0 /HPF (0-3); SQUAM EPITHELIAL CELL UR AURFX 0 /HPF (0-6); WBC, URINE AUTO RFX 0 /HPF (0-3)
[2024-09-17 04:10] VITALS: BP 118/54; TEMP 98.6; O2SAT 97
[2024-09-17 04:35] VITALS: BP 126/78; TEMP 98.4; O2SAT 100
[2024-09-17] MEDS: VANCOMYCIN HCL 1,500 MG, VIAL MATE ADAPTER 1 EACH in NS 500 ML IV SCH (05:38)
[2024-09-17 06:33] LABS: BASO % 0.5 % (0.0-1.0); EOS # 0.1 10^3/uL (0.0-0.5); EOS % 1.2 % (0.0-3.0); HEMATOCRIT 34.8 % (42.0-52.0); LYMPH # 1.5 10^3/uL (1.5-5.0); LYMPH % 19.9 % (24.0-44.0); MEAN CORPUSCULAR HEMOGLOBIN 30.3 pg (27.0-33.0); MEAN CORPUSCULAR HGB CONC 34.5 g/dl (32.0-36.5); MEAN CORPUSCULAR VOLUME 87.9 fl (80.0-96.0); MONO # 0.9 10^3/uL (0.0-0.8); MONO % 12.3 % (2.0-8.0); NEUTROPHILS % 65.6 % (36.0-66.0); PLATELET COUNT, AUTOMATED 214 10^3/uL (150-450); RED BLOOD COUNT 3.96 10^6/uL (4.30-6.10); WHITE BLOOD COUNT 7.6 10^3/uL (4.0-10.0)
[2024-09-17 06:54] LABS: BLOOD UREA NITROGEN 11 MG/DL (9-23); C REACTIVE PROTEIN QUANTITATIV 14.71 MG/DL (<1.0); CARBON DIOXIDE LEVEL 26 MMOL/L (20-31); CHLORIDE LEVEL 103 MMOL/L (98-107); CREATININE FOR GFR 0.69 MG/DL (0.70-1.30); GLOMERULAR FILTRATION RATE > 60.0 (>60); GLUCOSE, FASTING 216 MG/DL (60-100); MAGNESIUM LEVEL 1.6 MG/DL (1.8-2.4); POTASSIUM SERUM 3.5 MMOL/L (3.5-5.1); SODIUM LEVEL 139 MMOL/L (136-145)
[2024-09-17] MEDS: INSULIN LISPRO (NovoLOG) PER UNIT SC SCH (07:30)
[2024-09-17] MEDS: POTASSIUM CHLORIDE 10MEQ SR TABLET PO ONE (07:52)
[2024-09-17] MEDS: MAG SULF 1GM/100ML (MAG RUN) 1 GM in IV 1 EA IV SCH (07:53)
[2024-09-17] MEDS: LACTOBACILLUS ACIDOPHILUS CAP (BACID) PO SCH (08:00)
[2024-09-17 12:00] VITALS: BP 128/77; TEMP 97
[2024-09-17] MEDS: DAPTOmycin 700 MG in NS 50 ML IV SCH (18:22)
[2024-09-17 20:35] VITALS: BP 127/72; TEMP 98.6; O2SAT 98
[2024-09-18 05:26] VITALS: BP 123/71; TEMP 97; O2SAT 98
[2024-09-18 05:47] LABS: BASO % 0.5 % (0.0-1.0); EOS # 0.1 10^3/uL (0.0-0.5); EOS % 1.6 % (0.0-3.0); HEMOGLOBIN 12.1 g/dl (13.5-17.5); LYMPH % 31.3 % (24.0-44.0); MEAN CORPUSCULAR HEMOGLOBIN 29.6 pg (27.0-33.0); MEAN CORPUSCULAR HGB CONC 33.6 g/dl (32.0-36.5); MONO # 0.8 10^3/uL (0.0-0.8); MONO % 13.2 % (2.0-8.0); NEUTROPHILS # 3.4 10^3/uL (1.5-8.5); NEUTROPHILS % 52.9 % (36.0-66.0); PLATELET COUNT, AUTOMATED 232 10^3/uL (150-450); RED BLOOD COUNT 4.09 10^6/uL (4.30-6.10); WHITE BLOOD COUNT 6.4 10^3/uL (4.0-10.0)
[2024-09-18 06:07] LABS: BLOOD UREA NITROGEN 14 MG/DL (9-23); C REACTIVE PROTEIN QUANTITATIV 8.68 MG/DL (<1.0); CALCIUM LEVEL 7.9 MG/DL (8.5-10.1); CARBON DIOXIDE LEVEL 25 MMOL/L (20-31); CHLORIDE LEVEL 105 MMOL/L (98-107); CREATININE FOR GFR 0.64 MG/DL (0.70-1.30); GLOMERULAR FILTRATION RATE > 60.0 (>60); GLUCOSE, FASTING 359 MG/DL (60-100); MAGNESIUM LEVEL 1.7 MG/DL (1.8-2.4); POTASSIUM SERUM 4.1 MMOL/L (3.5-5.1); SODIUM LEVEL 137 MMOL/L (136-145)
[2024-09-18] MEDS: CEPHALEXIN 500 MG CAP PO SCH (09:30)
[2024-09-18] MEDS ORDERED: OSEL75CA2 PO (09:34)
[2024-09-18] MEDS ORDERED: CEPH500C PO (09:34)
[2024-09-18] MEDS ORDERED: MUCI600T31 PO (09:34)
[2024-09-18] MEDS ORDERED: RISATAB3 PO (09:34)
[2024-09-18] MEDS ORDERED: MAGN400T2 PO (10:48)
[2024-09-18] MEDS: MAGNESIUM OXIDE 400MG TAB (MAG-OX) PO ONE (11:01)
== END 2024-09-18 11:30 | disposition home or self-care (01) | DRG 383 ==
LOC: OBSVTOIN 17:42 → M MS5PR 17:42
PROVIDERS: ADMIT Internal Medicine; ATTEND Internal Medicine
PROC: 0JBQ0ZZ Excision of Right Foot Subcutaneous Tissue and Fascia, Open Approach (ICD-10-PCS; principal; 2024-09-17)
DX: L03.115 Cellulitis of right lower limb (principal); E11.42 Type 2 diabetes mellitus with diabetic polyneuropathy; E78.1 Pure hyperglyceridemia; G47.33 Obstructive sleep apnea (adult) (pediatric); Z86.16 Personal history of COVID-19; F17.200 Nicotine dependence, unspecified, uncomplicated; B97.29 Other coronavirus as the cause of diseases classified elsewhere; R09.81 Nasal congestion; R07.89 Other chest pain; L08.9 Local infection of the skin and subcutaneous tissue, unspecified; Z71.6 Tobacco abuse counseling; Z79.84 Long term (current) use of oral hypoglycemic drugs; Z79.899 Other long term (current) drug therapy; Z88.8 Allergy status to other drugs, medicaments and biological substances

== ENCOUNTER → 2024-09-16 | Outpatient (CLI) | payer OTHER, MEDICAID ==
[~2024-09-16] MED LIST changes: -ALOG1TAB2; +ALOG1TAB2 PO; +LANTINJ4 PO
== END ==
LOC: M ADAMS 12:19
PROVIDERS: ATTEND Physician Assistant
DX: E11.621 Type 2 diabetes mellitus with foot ulcer (principal)

== ENCOUNTER → 2024-09-24 | Outpatient (REF) | payer OTHER, MEDICAID ==
[~2024-09-24] MED LIST changes: +CEPH500C PO; +LANTINJ4 PO; +MAGN400T2 PO; +MUCI600T31 PO; +OSEL75CA2 PO; +RISATAB3 PO; -UNRESOLVED CLARIFICATION ENTRY XX SCH
== END ==
LOC: M SFHCADAM 12:56
PROVIDERS: ATTEND Physician Assistant
DX: L03.031 Cellulitis of right toe (principal)

== ENCOUNTER 2025-01-05 13:41 | Inpatient (IN) | payer MEDICAID, OTHER ==
[~2025-01-05] VITALS: Ht 203.2 cm; Wt 108.1 kg
[~2025-01-05 13:41] MED LIST changes: -LANTINJ4 PO; +LANTINJ4 SC
[2025-01-05 14:58] LABS: BASO # 0.0 10^3/uL (0.0-0.2); BASO % 0.3 % (0.0-1.0); EOS # 0.0 10^3/uL (0.0-0.5); EOS % 0.1 % (0.0-3.0); LYMPH # 1.4 10^3/uL (1.5-5.0); LYMPH % 11.6 % (24.0-44.0); MONO # 1.0 10^3/uL (0.0-0.8); MONO % 7.9 % (2.0-8.0); NEUTROPHILS # 9.6 10^3/uL (1.5-8.5); NEUTROPHILS % 79.9 % (36.0-66.0); PLATELET COUNT, AUTOMATED 269 10^3/uL (150-450)
[2025-01-05 15:03] LABS: ERYTHROCYTE SEDIMENTATION RATE 55 mm/hr (0-15)
[2025-01-05] MEDS: ACETAMINOPHEN *IV* 1,000 MG in IV 1 EA IV ONE (15:11)
[2025-01-05] MEDS: NS (Normal Saline) 0.9% 1,000 ML IV ONE (15:11)
[2025-01-05] MEDS: KETOROLAC 30 MG/ML 1 ML VIAL IV ONE (15:12)
[2025-01-05] MEDS ORDERED: CEPH500C PO (15:17)
[2025-01-05 15:19] LABS: INR 0.92
[2025-01-05] MEDS ORDERED: HOME MED LIST COMPLETE! XX SCH (15:20)
[2025-01-05 15:34] LABS: C REACTIVE PROTEIN QUANTITATIV 24.26 MG/DL (<1.0); CALCIUM LEVEL 9.0 MG/DL (8.5-10.1); CARBON DIOXIDE LEVEL 28 MMOL/L (20-31); CHLORIDE LEVEL 100 MMOL/L (98-107); CREATININE FOR GFR 0.69 MG/DL (0.70-1.30); GLOMERULAR FILTRATION RATE > 90.0 (>60); POTASSIUM SERUM 4.5 MMOL/L (3.5-5.1); SODIUM LEVEL 138 MMOL/L (136-145)
[2025-01-05] MEDS: NS (Normal Saline) 0.9% 1,000 ML IV SCH ×3 (15:35→23:12)
[2025-01-05] MEDS: PIPERACILLIN/TAZOBACTAM SOD 3.375 GM in DEXTROSE 5% (D5W) ADV/MINI-BAG 50 ML IV ONE (15:39)
[2025-01-05] MEDS ORDERED: MORPHINE 4 MG/ML 1 ML VIAL IV PRN ×2 (15:40→22:55)
[2025-01-05] MEDS ORDERED: GLUCAGON INJ 1 MG VIAL SC PRN ×2 (15:40→22:55)
[2025-01-05] MEDS ORDERED: GLUCOSE 4 GM CHEW PO PRN ×2 (15:40→22:55)
[2025-01-05] MEDS ORDERED: MORPHINE 2 MG/ML 1 ML VIAL IV PRN ×2 (15:40→22:55)
[2025-01-05] MEDS ORDERED: VANCOMYCIN HCL 1,000 MG, VIAL MATE ADAPTER 1 EACH in NS 250 ML IV SCH (15:40)
[2025-01-05] MEDS ORDERED: DEXTROSE 50% 50 ML SYRINGE IV PRN ×2 (15:40→22:55)
[2025-01-05] MEDS ORDERED: ACETAMINOPHEN 325 MG TAB PO PRN (15:50)
[2025-01-05 15:57] LABS: ALT/SGPT 28 U/L (7.0-40); AST/SGOT 22 U/L (<34)
[2025-01-05] MEDS: NICOTINE 21MG/24HR 1 EA TRANSDERMAL TD SCH (16:54)
[2025-01-05] MEDS: INSULIN LISPRO (NovoLOG) PER UNIT SC SCH (16:55)
[2025-01-05] MEDS: VANCOMYCIN HCL 2,000 MG, VIAL MATE ADAPTER 1 EACH in NS 500 ML IV ONE (17:12)
[2025-01-05] MEDS: LIDOCAINE 1% SDV 30 ML VIAL As Ordered ONE (20:56)
[2025-01-05] MEDS ORDERED: LanTUS (INSULIN GLARGINE INJ) 1 UNITS/0.01 ML SC SCH (21:00)
[2025-01-05] MEDS ORDERED: INSULIN LISPRO (NovoLOG) PER UNIT SC SCH (21:00)
[2025-01-05] MEDS ORDERED: PIPERACILLIN/TAZOBACTAM SOD 3.375 GM in DEXTROSE 5% (D5W) ADV/MINI-BAG 50 ML IV SCH (22:00)
[2025-01-05 22:01] VITALS: BP 136/83; TEMP 98.1
[2025-01-05 22:30] VITALS: BP 122/76; TEMP 96.9; O2SAT 100
[2025-01-05 23:00] VITALS: BP 127/76; TEMP 98.1; O2SAT 100
[2025-01-05] MEDS: PIPERACILLIN/TAZOBACTAM SOD 3.375 GM in DEXTROSE 5% (D5W) ADV/MINI-BAG 50 ML IV SCH (23:11)
[2025-01-05] MEDS: LanTUS (INSULIN GLARGINE INJ) 1 UNITS/0.01 ML SC SCH (23:12)
[2025-01-06] VITALS (7 sets, daily range): BP systolic 126–143; BP diastolic 73–81; TEMP 95.8–98.8; O2SAT 97–100
[2025-01-06] MEDS: VANCOMYCIN HCL 1,000 MG, VIAL MATE ADAPTER 1 EACH in NS 250 ML IV SCH (01:12)
[2025-01-06 06:09] LABS: PLATELET COUNT, AUTOMATED 239 10^3/uL (150-450)
[2025-01-06 06:39] LABS: ALT/SGPT 22 U/L (7.0-40); AST/SGOT 19 U/L (<34); CALCIUM LEVEL 8.5 MG/DL (8.5-10.1); CARBON DIOXIDE LEVEL 27 MMOL/L (20-31); CHLORIDE LEVEL 102 MMOL/L (98-107); CREATININE FOR GFR 0.95 MG/DL (0.70-1.30); GLOMERULAR FILTRATION RATE > 90.0 (>60); POTASSIUM SERUM 3.8 MMOL/L (3.5-5.1); SODIUM LEVEL 140 MMOL/L (136-145)
[2025-01-06] MEDS: VANCOMYCIN HCL 1,250 MG, VIAL MATE ADAPTER 1 EACH in NS 250 ML IV SCH (09:34)
[2025-01-06] MEDS: INSULIN LISPRO (NovoLOG) PER UNIT SC SCH ×3 (09:35→21:00)
[2025-01-06] MEDS: LanTUS (INSULIN GLARGINE INJ) 1 UNITS/0.01 ML SC SCH ×2 (09:36→21:16)
[2025-01-06] MEDS: NICOTINE 21MG/24HR 1 EA TRANSDERMAL TD SCH (09:47)
[2025-01-06] MEDS ORDERED: PERCOCET 5MG/325MG TAB PO PRN ×2 (18:00)
[2025-01-06] MEDS: ACETAMINOPHEN 325 MG TAB PO PRN (21:15)
[2025-01-07 00:19] VITALS: BP 143/76; TEMP 98; O2SAT 96
[2025-01-07 04:27] VITALS: BP 128/73; TEMP 97.9; O2SAT 92
[2025-01-07 08:00] VITALS: BP 141/79; TEMP 97.5; O2SAT 97
[2025-01-07 08:06] LABS: PLATELET COUNT, AUTOMATED 262 10^3/uL (150-450)
[2025-01-07 08:42] LABS: ALT/SGPT 27 U/L (7.0-40); AST/SGOT 24 U/L (<34); CALCIUM LEVEL 8.3 MG/DL (8.5-10.1); CARBON DIOXIDE LEVEL 25 MMOL/L (20-31); CHLORIDE LEVEL 106 MMOL/L (98-107); CREATININE FOR GFR 0.81 MG/DL (0.70-1.30); GLOMERULAR FILTRATION RATE > 90.0 (>60); POTASSIUM SERUM 4.4 MMOL/L (3.5-5.1); SODIUM LEVEL 143 MMOL/L (136-145)
[2025-01-07] MEDS: INSULIN LISPRO (NovoLOG) PER UNIT SC SCH ×2 (08:44→13:55)
[2025-01-07 12:30] VITALS: BP 143/79; TEMP 97.9; O2SAT 99
[2025-01-07 16:00] VITALS: BP 149/94; TEMP 98.1; O2SAT 98
[2025-01-07 19:58] VITALS: BP 149/87; TEMP 97.9; O2SAT 98
[2025-01-08 03:30] VITALS: BP 143/84; TEMP 97.4; O2SAT 96
[2025-01-08 06:29] LABS: PLATELET COUNT, AUTOMATED 306 10^3/uL (150-450)
[2025-01-08 06:57] LABS: ALT/SGPT 35 U/L (7.0-40); AST/SGOT 25 U/L (<34); CALCIUM LEVEL 9.1 MG/DL (8.5-10.1); CARBON DIOXIDE LEVEL 29 MMOL/L (20-31); CHLORIDE LEVEL 101 MMOL/L (98-107); CREATININE FOR GFR 0.89 MG/DL (0.70-1.30); GLOMERULAR FILTRATION RATE > 90.0 (>60); POTASSIUM SERUM 4.0 MMOL/L (3.5-5.1); SODIUM LEVEL 140 MMOL/L (136-145)
[2025-01-08 08:00] VITALS: BP 147/86; TEMP 97.7; O2SAT 99
[2025-01-08] MEDS: LanTUS (INSULIN GLARGINE INJ) 1 UNITS/0.01 ML SC ONE (09:06)
[2025-01-08 12:00] VITALS: BP 160/86; TEMP 97.2; O2SAT 98
[2025-01-08] MEDS: INSULIN LISPRO (NovoLOG) PER UNIT SC SCH (12:08)
[2025-01-08 20:10] VITALS: BP 147/82; TEMP 97; O2SAT 97
[2025-01-09 03:33] VITALS: BP 133/84; TEMP 97; O2SAT 99
[2025-01-09 06:42] LABS: PLATELET COUNT, AUTOMATED 328 10^3/uL (150-450)
[2025-01-09 07:11] LABS: ALT/SGPT 50 U/L (7.0-40); AST/SGOT 38 U/L (<34); CALCIUM LEVEL 9.2 MG/DL (8.5-10.1); CARBON DIOXIDE LEVEL 29 MMOL/L (20-31); CHLORIDE LEVEL 102 MMOL/L (98-107); CREATININE FOR GFR 0.84 MG/DL (0.70-1.30); GLOMERULAR FILTRATION RATE > 90.0 (>60); POTASSIUM SERUM 4.1 MMOL/L (3.5-5.1); SODIUM LEVEL 141 MMOL/L (136-145)
[2025-01-09] MEDS: LanTUS (INSULIN GLARGINE INJ) 1 UNITS/0.01 ML SC SCH (08:54)
[2025-01-09 11:59] VITALS: BP 141/85; TEMP 96.6; O2SAT 98
[2025-01-09] MEDS: FLUCONAZOLE 50 MG TABLET PO ONE (12:09)
[2025-01-09 12:52] VITALS: O2SAT 97
[2025-01-09] MEDS: traMADol 50 MG TAB PO PRN (12:52)
[2025-01-09] MEDS ORDERED: CEFD1CAP9 PO (13:47)
[2025-01-09] MEDS ORDERED: NICO21PAT TD (13:47)
[2025-01-09] MEDS ORDERED: TRAM50TA2 PO (13:47)
[2025-01-09] MEDS ORDERED: ACET32TAB PO (13:47)
[2025-01-09] MEDS ORDERED: RISATAB3 PO (13:47)
== END 2025-01-09 16:58 | disposition home or self-care (01) | DRG 710 ==
LOC: M ED 13:41 → M ED INP 15:38 → UNDOADMIN 15:38 → M SDC 19:37 → M MSPAV 19:38 → OBSVTOIN 19:38
PROVIDERS: ADMIT Podiatrist Foot & Ankle Surgery; ATTEND Internal Medicine
PROC: 0Y6U0Z0 Detachment at Left 3rd Toe, Complete, Open Approach (ICD-10-PCS; principal; 2025-01-05 20:10)
DX: A41.9 Sepsis, unspecified organism (principal); M86.272 Subacute osteomyelitis, left ankle and foot; E11.69 Type 2 diabetes mellitus with other specified complication; E11.40 Type 2 diabetes mellitus with diabetic neuropathy, unspecified; F17.200 Nicotine dependence, unspecified, uncomplicated; G47.33 Obstructive sleep apnea (adult) (pediatric); E78.1 Pure hyperglyceridemia; Z79.4 Long term (current) use of insulin; Z79.899 Other long term (current) drug therapy; Z88.8 Allergy status to other drugs, medicaments and biological substances

== ENCOUNTER → 2025-01-28 | Outpatient (REF) | payer OTHER, MEDICAID ==
[~2025-01-28] MED LIST changes: +ACET32TAB PO; +CEFD1CAP9 PO; +NICO21PAT TD; +TRAM50TA2 PO
== END ==
LOC: M LAB REF 17:03
PROVIDERS: ATTEND Podiatrist Foot & Ankle Surgery
DX: L03.116 Cellulitis of left lower limb (principal)

== ENCOUNTER 2025-02-10 06:09 | Day surgery (SDC) | payer OTHER ==
[~2025-02-10] VITALS: Ht 203.2 cm; Wt 108.5 kg
[~2025-02-10 06:09] MED LIST changes: +BACTDSTA PO
[2025-02-10] MEDS ORDERED: GLUCAGON INJ 1 MG VIAL SC PRN (06:45)
[2025-02-10] MEDS: LR 1,000 ML IV SCH (06:45)
[2025-02-10] MEDS ORDERED: DEXTROSE 50% 50 ML SYRINGE IV PRN (06:45)
[2025-02-10] MEDS ORDERED: GLUCOSE 4 GM CHEW PO PRN (06:45)
[2025-02-10] MEDS: INSULIN LISPRO (NovoLOG) PER UNIT SC PRN (07:10)
[2025-02-10] MEDS ORDERED: LIDOCAINE 2% 100 MG/5 ML SDV (FOR ANES.) As Ordered ONE (07:13)
[2025-02-10] MEDS ORDERED: MIDAZOLAM INJ 2 MG/2 ML VIAL As Ordered ONE (07:13)
[2025-02-10] MEDS ORDERED: ONDANSETRON 4MG 2ML VIAL As Ordered ONE (07:13)
[2025-02-10] MEDS: ceFAZolin SOD 2 GM IV ONCE IV ONE (07:36)
[2025-02-10] MEDS: LIDOCAINE 1% SDV 30 ML VIAL As Ordered ONE (07:38)
[2025-02-10] MEDS ORDERED: ACETAMINOPHEN 1000MG/100ML IV BAG As Ordered ONE (07:52)
[2025-02-10] MEDS ORDERED: KETOROLAC 30 MG/ML 1 ML VIAL As Ordered ONE (08:01)
[2025-02-10 09:16] VITALS: TEMP 96.7; O2SAT 100
[2025-02-10 09:17] VITALS: BP 123/72
== END 2025-02-10 09:17 | disposition home or self-care (01) ==
LOC: M SDC 06:09
PROVIDERS: ATTEND Podiatrist Foot & Ankle Surgery
DX: M86.172 Other acute osteomyelitis, left ankle and foot (principal); E10.9 Type 1 diabetes mellitus without complications; Z79.4 Long term (current) use of insulin; G47.33 Obstructive sleep apnea (adult) (pediatric); Z79.84 Long term (current) use of oral hypoglycemic drugs; F17.210 Nicotine dependence, cigarettes, uncomplicated; Z79.899 Other long term (current) drug therapy; Z88.8 Allergy status to other drugs, medicaments and biological substances
CPT/HCPCS: 28112; 88305; 88311; J0131; J0665; J0690; J1885; J2250; J2405; J3010